=== PATIENT | female | born 1945 | race Caucasian/White ===

== ENCOUNTER → 2016-05-12 | Outpatient (CLI) | payer MEDICARE, OTHER ==
[~2016-05-12] MED LIST: APIX5TAB PO; ASPI-99 PO; BETH25TA PO; CARA1TAB6 PO; CARD240C6 PO; CHOL1CAP6 PO; COZA100T PO; CYCL1TAB29 PO; DILT240C PO; DILT60TA PO; ERYT250C PO; ERYT250C12 PO; ESTR.3 PO; HYDR25TA5 PO; LEVO75TA3 PO; LEVO75TA43 PO; LOSA100T PO; METH4TAB6 PO; OCUVTAB4 PO; OXYC-392 PO; PANT40TA3 PO; TYLE500T PO; ULTR50TA5 PO; ZOFR4TAB3 SL
== END ==
LOC: PLAB 12:39
PROVIDERS: ATTEND Family Medicine
DX: G43.419 Hemiplegic migraine, intractable, without status migrainosus (principal)
CPT/HCPCS: 36415; 85652

== ENCOUNTER 2016-06-20 11:50 | Day surgery (SDC) | payer MEDICARE, OTHER ==
[~2016-06-20 11:50] MED LIST changes: -ASPI-99 PO; -CARA1TAB6 PO; -COZA100T PO; -CYCL1TAB29 PO; -DILT240C PO; -DILT60TA PO; -ERYT250C PO; -ERYT250C12 PO; -ESTR.3 PO; -HYDR25TA5 PO; -LEVO75TA43 PO; -OXYC-392 PO; -PANT40TA3 PO; -ULTR50TA5 PO
[2016-06-20] MEDS ORDERED: NO Heparin, Lovenox, Coumadin at least 12 hours prior to procedure. XX PRN (12:45)
[2016-06-20] MEDS ORDERED: CHLORHEXIDINE GLUCONATE 2 % 1 PACK (2 CLOTHS) TOP SCH (12:45)
[2016-06-20] MEDS ORDERED: MUPIROCIN 2% OINT 1 APPLIC/GM SYR NASAL SCH (12:45)
[2016-06-20] MEDS ORDERED: ceFAZolin 2 GM PREMIX 50 ML IV SCH (12:45)
[2016-06-20] MEDS ORDERED: POVIDONE IODINE 5% (ANTISEPSIS KIT) 4 APPLICATIONS EACH NARE SCH (12:45)
[2016-06-20] MEDS ORDERED: NS 1000 ML IV SCH (13:00)
[2016-06-20] MEDS ORDERED: MIDAZOLAM HCL 5 MG/5 ML VIAL ONE (13:14)
--- NOTE | 2016-06-20 14:12 | MA ---
cc: DAREN EARLY MD DATE: 06/20/2016 DIAGNOSIS Atrial fibrillation management. PROCEDURES PERFORMED 1. Loop recorder insertion. 2. 15 minutes of moderate sedation. DESCRIPTION OF PROCEDURE The patient was brought to the DOC unit in a postabsorptive state after informed consent was obtained. 2 mg of Versed and 15 mcg of fentanyl were given for IV sedation. Next, a [employer] LIN[employer] loop recorder was inserted subcutaneously to the left chest. The patient tolerated the procedure well without any apparent complications. Tachybrady pause and atrial fibrillation detection was enabled. The initial R-wave was 0.19 mV. The serial number is [id number]. Daren Early MD ANNIKA/BT /1:31 PM /1:56 PM
[2016-10-07] MEDS ORDERED: APIX5TAB PO (15:38)
[2016-10-07] MEDS ORDERED: ERYT250C PO (15:38)
[2016-10-07] MEDS ORDERED: COZA100T PO (15:38)
[2016-10-07] MEDS ORDERED: LEVO75TA3 PO (15:38)
[2016-10-07] MEDS ORDERED: ESTR.3 PO (15:38)
== END 2016-06-20 13:50 | disposition home or self-care (01) ==
LOC: HDOC 11:50 → HDIC 11:51 → HDOC 13:50
PROVIDERS: ATTEND Nuclear Medicine Nuclear Cardiology
DX: I48.2 Chronic atrial fibrillation (principal)
CPT/HCPCS: 33282; C1764; J2250; J3010

== ENCOUNTER → 2016-07-04 | Outpatient (CLI) | payer MEDICARE, OTHER ==
[~2016-07-04] MED LIST changes: +ASPI-99 PO; +CARA1TAB6 PO; +COZA100T PO; +CYCL1TAB29 PO; +DILT240C PO; +DILT60TA PO; +ERYT250C PO; +ERYT250C12 PO; +ESTR.3 PO; +HYDR25TA5 PO; +LEVO75TA43 PO; +OXYC-392 PO; +PANT40TA3 PO; +ULTR50TA5 PO
[2016-07-04 12:47] LABS: AUTOMATED NEUTROPHIL # 4.1 TH/MM3 (1.8-7.7); BASOPHIL % 0.6 % (0.0-2.0); EOSINOPHIL # 0.2 TH/MM3 (0-0.4); EOSINOPHIL % 2.9 % (0.0-4.0); HEMATOCRIT 41.2 % (35.0-46.0); HEMO FLAGS DIFF FINAL; LYMPH % 33.7 % (9.0-44.0); LYMPHOCYTE # 2.6 TH/MM3 (1.0-4.8); MEAN CELL VOLUME 94.4 FL (80.0-100.0); MEAN CORPUSCULAR HEMOGLOBIN 31.8 PG (27.0-34.0); MEAN CORPUSCULAR HGB CONC 33.7 % (32.0-36.0); MONO % 8.4 % (0.0-8.0); NEUT % 54.4 % (16.0-70.0); PLATELET COUNT 256 TH/MM3 (150-450); RED BLOOD COUNT 4.36 MIL/MM3 (4.00-5.30); RED CELL DISTRIBUTION WIDTH 13.6 % (11.6-17.2); WHITE BLOOD COUNT 7.6 TH/MM3 (4.0-11.0)
[2016-07-04 13:20] LABS: ANION GAP 6 MEQ/L (5-15); AST (GOT) 32 U/L (15-37); BICARBONATE 30.2 MEQ/L (21.0-32.0); BLOOD UREA NITROGEN 17 MG/DL (7-18); CHLORIDE 104 MEQ/L (98-107); GLOMERULAR FILTRATION RATE 56 ML/MIN (>89); GLUCOSE,FASTING 91 MG/DL (74-99); POTASSIUM 4.2 MEQ/L (3.5-5.1); SODIUM (NA) 140 MEQ/L (136-145)
[2016-07-04 13:37] LABS: ALKALINE PHOSPHATASE 58 U/L (45-117); ALT (GPT) 43 U/L (10-53); HDL CHOLESTEROL 76.5 MG/DL (40.0-60.0); LDL CHOLESTEROL 117 MG/DL (0-99); TOTAL BILIRUBIN ADULT 0.4 MG/DL (0.2-1.0)
== END ==
LOC: PLAB 09:21
PROVIDERS: ATTEND Family Medicine
DX: I10 Essential (primary) hypertension (principal); E78.5 Hyperlipidemia, unspecified; R10.9 Unspecified abdominal pain; N95.2 Postmenopausal atrophic vaginitis; E03.9 Hypothyroidism, unspecified
CPT/HCPCS: 36415; 80053; 80061; 84443; 85025

== ENCOUNTER 2016-07-06 19:21 | Emergency (ER) | payer MEDICARE, OTHER ==
[~2016-07-06] VITALS: Ht 162.6 cm; Wt 82.0 kg
[~2016-07-06 19:21] MED LIST changes: -ASPI-99 PO; -CARA1TAB6 PO; -COZA100T PO; -CYCL1TAB29 PO; -DILT240C PO; -DILT60TA PO; -ERYT250C PO; -ERYT250C12 PO; -ESTR.3 PO; -HYDR25TA5 PO; -LEVO75TA43 PO; -OXYC-392 PO; -PANT40TA3 PO; -ULTR50TA5 PO
[2016-07-06 19:32] VITALS: BP 148/80; PULSE 91; RESP 18; TEMP 98.2; O2SAT 94
[2016-07-06 19:59] VITALS: BP 148/80; PULSE 91; RESP 18; TEMP 98.2; O2SAT 94
[2016-07-06] MEDS ORDERED: SODIUM CHLORIDE 0.9% FLUSH 5 ML FLUSH IVF PRN (20:00)
[2016-07-06] MEDS ORDERED: ONDANSETRON HCL 4 MG/2 ML VIAL IVP ONE (20:00)
[2016-07-06] MEDS ORDERED: MORPHINE SULFATE 4 MG/ML INJ IV PUSH ONE ×2 (20:00→21:30)
--- NOTE | 2016-07-06 20:27 | PD ---
HPI . Abdominal and back pain Chief Complaint: Abdominal Pain Time Seen by Provider: 19:40 Travel History International Travel<30 days: No Contact w/Intl Traveler<30days: No Traveled to known affect area: No History of Present Illness HPI Patient presents complaining with abdominal and back pain. She states that it started as right flank pain yesterday. It has now moved to the epigastrium and is radiating through to her back. The pain is severe. It is associated with nausea. She states that it feels like a previous episode of pancreatitis. She admits to nausea but denies any vomiting or diarrhea. She has not had any fever. She denies any urinary tract symptoms. She reports a previous right nephrectomy because of hydronephrosis. She has also had a previous cholecystectomy. [id number]: Epigastrium and mid back SEVERITY: Severe DURATION: Less than 24 hours TIMING: Started in the right flank and moved to the epigastrium and back CONTEXT: History of pancreatitis MODIFYING FACTORS: It is exacerbated by movement ASSOCIATED SYMPTOMS: Nausea PFSH Past Medical History Hx Anticoagulant Therapy: Yes (ELEQUIS) Arthritis: No Asthma: No Atrial Fibrillation: Yes Autoimmune Disease: No Heart Rhythm Problems: Yes Cancer: No Cardiovascular Problems: Yes High Cholesterol: Yes Chemotherapy: No Chest Pain: No Congestive Heart Failure: No COPD: No Cerebrovascular Accident: No Diabetes: No Diminished Hearing: No Endocrine: Yes Gastrointestinal Disorders: Yes (GASTROPARESIS) GERD: Yes Genitourinary: Yes (HYDRONEPHROSIS) Headaches: Yes Hiatal Hernia: No Hypertension: Yes Immune Disorder: No Implanted Vascular Access Dvce: No Kidney Stones: No Musculoskeletal: Yes Neurologic: Yes Psychiatric: No Reproductive: No Respiratory: No Immunizations Current: Yes Migraines: Yes Radiation Therapy: No Renal Failure: No Seizures: No Sickle Cell Disease: No Sleep Apnea: No Thyroid Disease: Yes Ulcer: No Tetanus Vaccination: Unknown Influenza Vaccination: Yes ?: Not Menopausal: Yes Past Surgical History Abdominal Surgery: Yes (GALL BLADDER) AICD: No Arteriovenous Shunt: No Cardiac Surgery: No Cholecystectomy: Yes Ear Surgery: No Endocrine Surgery: No Eye Surgery: No Genitourinary Surgery: Yes (RIGHT NEPHRECTOMY) Gynecologic Surgery: Yes (RADICAL HYSTERECTOMY) Hysterectomy: Yes Insulin Pump: No Joint Replacement: No Neurologic Surgery: No Oral Surgery: Yes Pacemaker: No Thoracic Surgery: No Other Surgery: Yes Social History Alcohol Use: Yes (KALI PHILLIPS) Tobacco Use: No Substance Use: No Allergies-Medications (Allergen,Severity, Reaction): Coded Allergies: Dilaudid (Verified Adverse Reaction, Mild, Nausea/Vomiting, 07/06/16) Reported Meds & Prescriptions Reported Meds & Active Scripts Active Reported Premarin (Estrogens Conjugated) 0.3 Mg Tab 0.3 Mg PO DAILY Pantoprazole (Pantoprazole Sodium) 40 Mg Tab 40 Mg PO DAILY Hydrochlorothiazide 25 Mg Tab 25 Mg PO DAILY Diltiazem (Diltiazem HCl) 60 Mg Tab 60 Mg PO QID Diltiazem HCl ER (Diltiazem HCl Coated Beads) 240 Mg Cap Erythromycin (Erythromycin Base) 250 Mg Cap 125 Mg PO QID Losartan (Losartan Potassium) 100 Mg Tab 100 Mg PO DAILY Levoxyl (Levothyroxine Sodium) 75 Mcg Tab 75 Mcg PO DAILY Review of Systems Except as stated in HPI: all other systems reviewed are Neg General / Constitutional: No: Fever, Chills Cardiovascular: No: Chest Pain or Discomfort Respiratory: No: Shortness of Breath Gastrointestinal: Positive: Nausea, Abdominal Pain, No: Vomiting, Diarrhea, Loss of Appetite Genitourinary: No: Urgency, Frequency, Dysuria Musculoskeletal: Positive: Pain (mid back pain) Physical Exam Narrative GENERAL: Patient presents ambulatory and is in no acute distress. She does seem to have pain with movement. SKIN: Warm and dry. HEAD: Atraumatic. Normocephalic. EYES: Pupils equal and round. ENT: No nasal bleeding or discharge. Mucous membranes pink and moist. NECK: Trachea midline. Neck is supple. CARDIOVASCULAR: Regular rate and rhythm. Heart sounds are normal. RESPIRATORY: No accessory muscle use. Lungs are clear with full air movement throughout. GASTROINTESTINAL: Abdomen soft, non-tender, nondistended. She has a totally benign abdominal exam. MUSCULOSKELETAL: No obvious deformities. No edema. NEUROLOGICAL: Awake and alert. No obvious cranial nerve deficits. Motor grossly within normal limits. Normal speech. PSYCHIATRIC: Appropriate mood and affect; insight and judgment normal. Data Data Last Documented VS Vital Signs Date Time Temp Pulse Resp B/P Pulse Ox O2 Delivery O2 Flow Rate FiO2 07/06/16 21:42 18 07/06/16 21:26 75 118/53 94 Room Air 07/06/16 19:59 98.2 Orders Complete Blood Count With Diff (07/06/16 19:47) Comprehensive Metabolic Panel (07/06/16 19:47) Lactic Acid (07/06/16 19:47) Urinalysis - C+S If Indicated (07/06/16 19:47) Ct Abd/Pel W Iv Contrast(Rout) (07/06/16 19:47) Iv Access Insert/Monitor (07/06/16 19:47) Morphine Inj (Morphine Inj) (07/06/16 20:00) Ondansetron Inj (Zofran Inj) (07/06/16 20:00) Sodium Chloride 0.9% Flush (Ns Flush) (07/06/16 20:00) Electrocardiogram (07/06/16 19:47) Morphine Inj (Morphine Inj) (07/06/16 21:30) Lipase (07/06/16 20:20) Iodixanol 320 Inj (Rad Ct) (Visipaque 32 (07/06/16 22:05) Labs Laboratory Tests Test 07/06/16 20:20 White Blood Count 8.2 TH/MM3 Red Blood Count 4.54 MIL/MM3 Hemoglobin 14.6 GM/DL Hematocrit 42.1 % Mean Corpuscular Volume 92.8 FL Mean Corpuscular Hemoglobin 32.2 PG Mean Corpuscular Hemoglobin 34.7 % Concent Red Cell Distribution Width 12.6 % Platelet Count 275 TH/MM3 Mean Platelet Volume 8.1 FL Neutrophils (%) (Auto) 60.4 % Lymphocytes (%) (Auto) 29.2 % Monocytes (%) (Auto) 8.0 % Eosinophils (%) (Auto) 1.1 % Basophils (%) (Auto) 1.3 % Neutrophils # (Auto) 4.9 TH/MM3 Lymphocytes # (Auto) 2.4 TH/MM3 Monocytes # (Auto) 0.7 TH/MM3 Eosinophils # (Auto) 0.1 TH/MM3 Basophils # (Auto) 0.1 TH/MM3 CBC Comment DIFF FINAL Differential Comment Urine Collection Type VOIDED Urine Color YELLOW Urine Turbidity CLEAR Urine pH 6.5 Urine Specific Ber[place] 1.022 Urine Protein TRACE mg/dL Urine Glucose (UA) NEG mg/dL Urine Ketones TRACE mg/dL Urine Occult Blood NEG Urine Nitrite NEG Urine Bilirubin NEG Urine Leukocyte Esterase NEG Urine WBC 0-2 /hpf Urine Squamous Epithelial >8 /hpf Cells Microscopic Urinalysis Comment CULT NOT INDICATED Sodium Level 140 MEQ/L Potassium Level 3.8 MEQ/L Chloride Level 101 MEQ/L Carbon Dioxide Level 29.3 MEQ/L Anion Gap 10 MEQ/L Blood Urea Nitrogen 17 MG/DL Creatinine 1.20 MG/DL Estimat Glomerular Filtration 44 ML/MIN Rate Random Glucose 114 MG/DL Lactic Acid Level 1.5 mmol/L Calcium Level 9.7 MG/DL Total Bilirubin 0.4 MG/DL Aspartate Amino Transf 25 U/L (AST/SGOT) Alanine Aminotransferase 34 U/L (ALT/SGPT) Alkaline Phosphatase 69 U/L Total Protein 8.2 GM/DL Albumin 3.7 GM/DL Lipase 183 U/L [facility] Medical Decision Making Medical Screen Exam Complete: Yes Emergency Medical Condition: Yes Differential Diagnosis Differential diagnosis of abdominal pain includes but is not limited to gastritis, pancreatitis, hepatitis, gastroenteritis, gallbladder disease, constipation, urinary retention, UTI, peptic ulcer disease, diverticulitis or appendicitis Narrative Course Patient presents for evaluation of epigastric pain radiating through to the back. She has already had a previous cholecystectomy and right nephrectomy. Therefore, cholecystitis and right renal colic can be ruled out. CBC & BMP Diagram 07/06/16 20:20 LFTs, lipase and LA normal. U/A neg for infection. Last Impressions Abdomen/Pelvis CT 07/06/161946 Signed Impressions: Service Date/Time: Wednesday, July 06, 2016 21:44 - CONCLUSION: 1. Mild to moderate hepatic steatosis. 2. Status post cholecystectomy. 3. Right nephrectomy. No residual soft tissue density. 4. Scattered diverticulosis without diverticulitis. Dioni Savage MD No etiology for her epigastric and back pain has been found. She acts like musculoskeletal pain. The patient has been on erythromycin for about a year for her gastroparesis. She is already on Protonix. I will add Carafate. Diagnosis Primary Impression: Abdominal pain, acute, epigastric Additional Impression: Back pain Qualified Code: M54.6 - Acute midline thoracic back pain Patient Instructions: Back Pain (ED), Epigastric Pain (ED), General Instructions Med/Other Pt SpecificInfo: Prescription(s) given Scripts Cyclobenzaprine (Flexeril)10 Mg Tab10 Mg PO TID #30 TAB Ref 0 Prov:Laura Alaniz MD 07/06/16 Tramadol (Ultram)50 Mg Tab50 Mg PO Q4H PRN (PAIN) #12 TAB Ref 0 Prov:Laura Alaniz MD 07/06/16 Sucralfate (Carafate)1 Gm Tab1 Gm PO QID #120 TAB Ref 0 On empty stomach Prov:Laura Alaniz MD 07/06/16 Disposition: 01 DISCHARGE HOME Condition: Stable Laura Alaniz MD Jul 06, 2016 20:27
[2016-07-06] MEDS ORDERED: ESTR.3 PO (20:42)
[2016-07-06] MEDS ORDERED: DILT60TA PO (20:42)
[2016-07-06] MEDS ORDERED: ERYT250C12 PO (20:42)
[2016-07-06] MEDS ORDERED: HYDR25TA5 PO (20:42)
[2016-07-06] MEDS ORDERED: LEVO75TA43 PO (20:42)
[2016-07-06] MEDS ORDERED: LOSA100T PO (20:42)
[2016-07-06] MEDS ORDERED: PANT40TA3 PO (20:42)
[2016-07-06] MEDS ORDERED: DILT240C PO (20:42)
[2016-07-06 20:43] LABS: AUTOMATED NEUTROPHIL # 4.9 TH/MM3 (1.8-7.7); BASOPHIL # 0.1 TH/MM3 (0-0.2); BASOPHIL % 1.3 % (0.0-2.0); EOSINOPHIL # 0.1 TH/MM3 (0-0.4); EOSINOPHIL % 1.1 % (0.0-4.0); HEMATOCRIT 42.1 % (35.0-46.0); HEMO FLAGS DIFF FINAL; LYMPH % 29.2 % (9.0-44.0); LYMPHOCYTE # 2.4 TH/MM3 (1.0-4.8); MEAN CELL VOLUME 92.8 FL (80.0-100.0); MEAN CORPUSCULAR HEMOGLOBIN 32.2 PG (27.0-34.0); MEAN CORPUSCULAR HGB CONC 34.7 % (32.0-36.0); NEUT % 60.4 % (16.0-70.0); PLATELET COUNT 275 TH/MM3 (150-450); RED BLOOD COUNT 4.54 MIL/MM3 (4.00-5.30); RED CELL DISTRIBUTION WIDTH 12.6 % (11.6-17.2); WHITE BLOOD COUNT 8.2 TH/MM3 (4.0-11.0)
[2016-07-06 20:44] LABS: BLOOD, URINE NEG (NEG); GLUCOSE,URINE NEG (NEG); KETONE, URINE TRACE mg/dL (NEG); NITRITE,URINE NEG (NEG); PH, URINE 6.5 (5.0-8.5)
[2016-07-06 20:51] LABS: CHLORIDE 101 MEQ/L (98-107); POTASSIUM 3.8 MEQ/L (3.5-5.1); SODIUM (NA) 140 MEQ/L (136-145)
[2016-07-06 20:53] LABS: METHOD OF COLLECTION VOIDED; URINE COLOR YELLOW (YELLW/STRAW)
[2016-07-06 20:55] LABS: ANION GAP 10 MEQ/L (5-15); BICARBONATE 29.3 MEQ/L (21.0-32.0); BLOOD UREA NITROGEN 17 MG/DL (7-18); COMMENT (UR) CULT NOT INDICATED; CULTURE IF INDICATED CULT NOT INDICATED; SQUAMOUS EPITHELIAL CELL URINE >8 /hpf (0-5); WBC, URINE 0-2 /hpf (0-5)
[2016-07-06 20:58] LABS: ALT (GPT) 34 U/L (10-53); AST (GOT) 25 U/L (15-37); GLOMERULAR FILTRATION RATE 44 ML/MIN (>89)
[2016-07-06 20:59] LABS: TOTAL BILIRUBIN ADULT 0.4 MG/DL (0.2-1.0)
[2016-07-06 21:01] LABS: ALKALINE PHOSPHATASE 69 U/L (45-117)
[2016-07-06 21:26] VITALS: BP 118/53; PULSE 75; RESP 18; O2SAT 94
[2016-07-06] MEDS ORDERED: IODIXANOL 320 MG/ML 10 ML VIAL (for Rad CT) IV ONE (22:05)
--- NOTE | 2016-07-06 22:09 | RADHPO ---
EXAM DATE/TIME: 07/06/2016 21:44 [facility] COMPARISON: No previous studies available for comparison. INDICATIONS : Diffuse abdominal pain with nausea. IV CONTRAST: 46 cc Visipaque (iodixanol) IV ORAL CONTRAST: No oral contrast ingested. RADIATION DOSE: 16.2 CTDIvol (mGy) MEDICAL HISTORY : Gastroparesis. Gastroesophageal reflux disease. SURGICAL HISTORY : Cholecystectomy. Nephrectomy, right.Hysterectomy. ENCOUNTER: Initial ACUITY: 2 days PAIN SCALE: 8/10 LOCATION: Abdomen. TECHNIQUE: Volumetric scanning of the abdomen and pelvis was performed. Using automated exposure control and ad justment of the mA and/or kV according to patient size, radiation dose was kept as low as reasonably achievable to obtain optimal diagnostic quality images. FINDINGS: LOWER LUNGS: Minimal bibasilar densities. LIVER: Decreased attenuation without lesion. There is no dilation of the biliary tree. Cholecystectomy clip s. SPLEEN: Normal size without lesion. PANCREAS: Within normal limits. KIDNEYS: Right kidney surgically absent. There is no mass, stone or hydronephrosis the left kidney. ADRENAL GLANDS: Within normal limits. VASCULAR: There is no aortic aneurysm. BOWEL/MESENTERY: Scattered diverticulosis. Appendix is normal. There is no free intraperitoneal air or fluid. ABDOMINAL WALL: Within normal limits. RETROPERITONEUM: There is no lymphadenopathy. BLADDER: No wall thickening or mass. REPRODUCTIVE: Within normal limits. INGUINAL: There is no lymphadenopathy or hernia. MUSCULOSKELETAL: Within normal limits for patient age. CONCLUSION: 1. Mild to moderate hepatic steatosis. 2. Status post cholecystectomy. 3. Right nephrectomy. No residual soft tissue density. 4. Scattered diverticulosis without diverticulitis. Dioni Savage MD on July 06, 2016 at 22:05 Board Certified Radiologist. This report was verified electronically.
[2016-07-06] MEDS ORDERED: ULTR50TA5 PO (22:21)
[2016-07-06] MEDS ORDERED: CYCL1TAB29 PO (22:21)
[2016-07-06] MEDS ORDERED: CARA1TAB6 PO (22:21)
[2016-07-06 22:23] VITALS: BP 134/60; PULSE 77; RESP 18; O2SAT 95
--- NOTE | 2016-07-07 14:42 | EKG ---
Date Performed: 07/06/2016 Time Performed: 19:50:28 PTAGE: 71 years EKG: Sinus rhythm . Leftward axis Poor R wave progression - probable normal variant Lateral ST changes are nonspecific Borderline ECG PREVIOUS TRACING : 03/21/2015 01.50 Compared to prior tracing no significant change DOCTOR: Ke Ac Interpretating Date/Time 07/07/2016 14:41:51
[2016-10-07] MEDS ORDERED: LEVO75TA3 PO (15:38)
[2016-10-07] MEDS ORDERED: COZA100T PO (15:38)
[2016-10-07] MEDS ORDERED: APIX5TAB PO (15:38)
[2016-10-07] MEDS ORDERED: ERYT250C PO (15:38)
[2016-10-07] MEDS ORDERED: ESTR.3 PO (15:38)
== END 2016-07-06 22:53 | disposition home or self-care (01) ==
LOC: PHED 19:21
DX: R10.13 Epigastric pain (principal); M54.6 Pain in thoracic spine; R11.0 Nausea; R94.31 Abnormal electrocardiogram [ECG] [EKG]; I10 Essential (primary) hypertension; E07.9 Disorder of thyroid, unspecified; E78.00 Pure hypercholesterolemia, unspecified; Z79.01 Long term (current) use of anticoagulants; Z86.79 Personal history of other diseases of the circulatory system; Z87.19 Personal history of other diseases of the digestive system; Z87.448 Personal history of other diseases of urinary system; Z87.39 Personal history of other diseases of the musculoskeletal system and connective tissue; Z86.69 Personal history of other diseases of the nervous system and sense organs
CPT/HCPCS: 74177; 80053; 81001; 83605; 83690; 85025; 93005; 96374; 96375; 96376; 99284; J2270; J2405; Q9967

== ENCOUNTER → 2016-07-21 | Outpatient (CLI) | payer MEDICARE, OTHER ==
[~2016-07-21] MED LIST changes: +ASPI-99 PO; -BETH25TA PO; +CARA1TAB6 PO; -CARD240C6 PO; -CHOL1CAP6 PO; +COZA100T PO; +CYCL1TAB29 PO; +DILT240C PO; +DILT60TA PO; +ERYT250C PO; +ERYT250C12 PO; +ESTR.3 PO; +HYDR25TA5 PO; +LEVO75TA43 PO; -METH4TAB6 PO; -OCUVTAB4 PO; +OXYC-392 PO; +PANT40TA3 PO; -TYLE500T PO; +ULTR50TA5 PO; -ZOFR4TAB3 SL
[2016-07-21 13:49] LABS: POTASSIUM 3.7 MEQ/L (3.5-5.1)
== END ==
LOC: PLAB 11:34
PROVIDERS: ATTEND Family Medicine
DX: N28.9 Disorder of kidney and ureter, unspecified (principal)
CPT/HCPCS: 36415; 80048

== ENCOUNTER → 2016-09-10 | Outpatient (CLI) | payer MEDICARE, OTHER ==
[2016-09-10 16:01] LABS: RHEUMATOID FACTOR TRIGGER LESS THAN 10.0 IU/ML (0.0-14.9)
[2016-09-10 16:04] LABS: ANION GAP 7 MEQ/L (5-15); AST (GOT) 27 U/L (15-37); BICARBONATE 26.7 MEQ/L (21.0-32.0); BLOOD UREA NITROGEN 12 MG/DL (7-18); CHLORIDE 106 MEQ/L (98-107); GLOMERULAR FILTRATION RATE 62 ML/MIN (>89); SODIUM (NA) 140 MEQ/L (136-145)
[2016-09-10 16:07] LABS: ALKALINE PHOSPHATASE 59 U/L (45-117); ALT (GPT) 30 U/L (10-53); CREATINE KINASE 77 U/L (26-192); TOTAL BILIRUBIN ADULT 0.3 MG/DL (0.2-1.0)
[2016-09-10 16:24] LABS: WESTERGREN SEDIMENTATION RATE 32 mm/hr (0-30)
[2016-09-10 16:28] LABS: AUTOMATED NEUTROPHIL # 2.9 TH/MM3 (1.8-7.7); BASOPHIL % 0.6 % (0.0-2.0); EOSINOPHIL # 0.2 TH/MM3 (0-0.4); EOSINOPHIL % 2.5 % (0.0-4.0); HEMO FLAGS DIFF FINAL; LYMPHOCYTE # 2.8 TH/MM3 (1.0-4.8); MEAN CORPUSCULAR HEMOGLOBIN 31.8 PG (27.0-34.0); MEAN CORPUSCULAR HGB CONC 34.2 % (32.0-36.0); MONO % 9.7 % (0.0-8.0); NEUT % 44.2 % (16.0-70.0); PLATELET COUNT 240 TH/MM3 (150-450); RED BLOOD COUNT 4.41 MIL/MM3 (4.00-5.30); RED CELL DISTRIBUTION WIDTH 13.4 % (11.6-17.2); WHITE BLOOD COUNT 6.6 TH/MM3 (4.0-11.0)
== END ==
LOC: PLAB 12:28
PROVIDERS: ATTEND Family Medicine
DX: M79.1 Myalgia (principal); R60.0 Localized edema; M25.50 Pain in unspecified joint
CPT/HCPCS: 36415; 80053; 82550; 85025; 85652; 86038; 86141; 86430

== ENCOUNTER 2016-10-03 15:26 | Inpatient (IN) | payer MEDICARE, OTHER ==
[~2016-10-03] VITALS: Ht 162.6 cm; Wt 85.4 kg
[~2016-10-03 15:26] MED LIST changes: -APIX5TAB PO; -ASPI-99 PO; -COZA100T PO; -ERYT250C PO; -LEVO75TA3 PO; -OXYC-392 PO
[2016-10-07] MEDS ORDERED: COZA100T PO ×2 (15:38)
[2016-10-07] MEDS ORDERED: ESTR.3 PO ×2 (15:38)
[2016-10-07] MEDS ORDERED: ERYT250C PO ×2 (15:38)
[2016-10-07] MEDS ORDERED: APIX5TAB PO ×2 (15:38)
[2016-10-07] MEDS ORDERED: LEVO75TA3 PO ×2 (15:38)
[2016-10-09] VITALS (8 sets, daily range): BP systolic 120–172; BP diastolic 59–71; PULSE 57–78; RESP 16–19; TEMP 97.5–98; O2SAT 95–98
[2016-10-09] MEDS ORDERED: SODIUM CHLORID 0.9% 500 ML IV PRN (06:30)
[2016-10-09] MEDS ORDERED: POVIDONE IODINE 5% (ANTISEPSIS KIT) 4 APPLICATIONS EACH NARE PRN (06:30)
[2016-10-09] MEDS ORDERED: LACTATED RINGER'S 1000 ML IV PRN (06:30)
[2016-10-09] MEDS ORDERED: CHLORHEXIDINE GLUCONATE 2 % 1 PACK (2 CLOTHS) TOPICAL PRN (06:30)
[2016-10-09] MEDS ORDERED: INSULIN HUMAN REGULAR 1,000 UNITS/10 ML VIAL SQ PRN (06:30)
[2016-10-09] MEDS ORDERED: METOPROLOL TARTRATE 25 MG TAB PO PRN (06:30)
--- NOTE | 2016-10-09 06:58 | HHI.HP ---
History of Present Illness Chief Complaint: asymptomatic R carotid stenosis History of Present Illness 71 yo [place] female with asymptomatic R carotid stenosis; no history of stroke, TIA, or amaurosis. Has been feeling well since seen in clinic - no change in health Past/Family/Social History Past Medical History GERD HTN gastroparesis Past Surgical History R nephrectomy [facility] edwin cardiac ablation (a fib) Social History nonsmoker Family History NC Home Medications Reported Medications Losartan (Cozaar)100 Mg Qgx405 Mg PO DAILY #30 TAB Ref 0 10/07/16 Levothyroxine 75 Mcg Tab75 Mcg PO DAILY #30 TAB Ref 0 10/07/16 Estrogens, Conjugated (Premarin)0.3 Mg Tab0.3 Mg PO DAILY #30 TAB Ref 0 10/07/16 Erythromycin Base (Erythromycin)250 Mg Capsule.dr125 Mg PO QID 10/07/16 Apixaban (Eliquis)5 Mg Tab5 Mg PO BID #60 TAB Ref 0 10/07/16 Diltiazem HCl Coated Beads (Diltiazem HCl ER)240 Mg Cap1 Cap PO DAILY 07/06/16 Discontinued Reported Medications Estrogens, Conjugated (Premarin)0.3 Mg Tab0.3 Mg PO DAILY #30 TAB Ref 0 07/06/16 Pantoprazole 40 Mg Tab40 Mg PO DAILY #30 TAB Ref 0 07/06/16 Hydrochlorothiazide 25 Mg Tab25 Mg PO DAILY #30 TAB Ref 0 07/06/16 Diltiazem 60 Mg Tab60 Mg PO QID #120 TAB Ref 0 07/06/16 Erythromycin Base (Erythromycin)250 Mg [id number] Mg PO QID 07/06/16 Losartan 100 Mg Ydc191 Mg PO DAILY #30 TAB Ref 0 07/06/16 Levothyroxine (Levoxyl)75 Mcg Tab75 Mcg PO DAILY #30 TAB Ref 0 07/06/16 Discontinued Scripts Cyclobenzaprine (Flexeril)10 Mg Tab10 Mg PO TID #30 TAB Ref 0 Prov:Laura Alaniz MD 07/06/16 Tramadol (Ultram)50 Mg Tab50 Mg PO Q4H PRN (PAIN) #12 TAB Ref 0 Prov:Laura Alaniz MD 07/06/16 Sucralfate (Carafate)1 Gm Tab1 Gm PO QID #120 TAB Ref 0 On empty stomach Prov:Laura Alaniz MD 07/06/16 Coded Allergies: Dilaudid (Verified Adverse Reaction, Mild, Nausea/Vomiting, 10/09/16) Review of Systems Constitutional: DENIES: Fever, Chills Eyes: DENIES: Vision loss Cardiovascular: DENIES: Chest pain, Syncope, Dyspnea on Exertion Gastrointestinal: COMPLAINS OF: Nausea Psychiatric: COMPLAINS OF: Anxiety Physical Exam Neuro: awake, alert, neuro intact HEENT: NC/AT; anicteric sclera Neck: no JVD; R neck without rashes or skin changes Heart: reg rate, no M Lungs: clear B Abdomen: NT Vascular: palpable UE pulses Extremities: MCBRIDE, no CCE Hct 41 plt 249 INR 0.9 cr 0.9 CTA reviewed - high grade R ICA stenosis Assessment and Plan Plan R CEA today. All the risks and benefits were discussed with the patient and she agrees. To OR. Patient's operative site marked. Discharge Planning CVICU post-op Likely home tomorrow (POD#1) family phone: [phone] Dylan Quezada MD Oct 09, 2016 06:58
[2016-10-09] MEDS ORDERED: HEPARIN SODIUM - IV 10,000 UNITS/10 ML VIAL ONE (07:18)
[2016-10-09] MEDS ORDERED: THROMBIN (TOPICAL) 20,000 UNIT SPRAY KIT ONE (07:18)
[2016-10-09] MEDS ORDERED: PROTAMINE SULFATE 50 MG/5 ML VIAL ONE (07:18)
[2016-10-09] MEDS ORDERED: LACTATED RINGER'S 1000 ML INJ 1,000 ML IV SCH (07:25)
[2016-10-09] MEDS ORDERED: MORPHINE SULFATE 4 MG/ML INJ IV PRN (07:30)
[2016-10-09] MEDS ORDERED: FAMOTIDINE 20 MG/2 ML VIAL ONE (07:41)
[2016-10-09] MEDS ORDERED: ONDANSETRON HCL 4 MG/2 ML VIAL ONE (07:42)
[2016-10-09] MEDS ORDERED: MIDAZOLAM HCL 2 MG/2 ML VIAL ONE (07:42)
[2016-10-09] MEDS ORDERED: METOCLOPRAMIDE HCL 10 MG/2 ML VIAL ONE (07:42)
[2016-10-09] MEDS ORDERED: PROMETHAZINE INJ 25 MG/ML VIAL ONE (07:45)
[2016-10-09] MEDS ORDERED: ceFAZolin 2 GM PREMIX 50 ML ONE (08:09)
[2016-10-09] MEDS: LEVOTHYROXINE SODIUM 75 MCG TAB PO SCH (08:30)
[2016-10-09] MEDS: LOSARTAN 50 MG TAB PO SCH (09:00)
[2016-10-09] MEDS: ASPIRIN EC 81 MG TABEC PO SCH (09:00)
[2016-10-09] MEDS: PANTOPRAZOLE SOD 40 MG DELAYED RELEASE TAB PO SCH (09:00)
--- NOTE | 2016-10-09 09:53 | HHI.PR ---
cc: Marisol Piña MD Immediate Post Op Note Procedure Date: Oct 09, 2016 Pre Op Diagnosis: Asymptomatic high grade RIGHT carotid stenosis Post Op Diagnosis: Asymptomatic high grade RIGHT carotid stenosis Surgeon: Dylan Quezada Computer Education Professor(s): Ebenezer Salas Procedure: R CEA Findings: high grade plaque in proximal R ICA Additional Information: endarterectomy and patch without difficulty awoke neurologically intact Complications: none apparent Specimen(s) removed: plaque, not for pathology Estimated blood loss: 75 mL Anesthesia: General Drains: None Fluids: 1000mL IVF Patient to: Other (CVICU) Patient Condition: Good Implant/Devices: SEE IMPLANT LOG (if applicable) Date/Time of Procedure: SEE SURGICAL CARE RECORD Dylan Quezada MD Oct 09, 2016 09:53
[2016-10-09] MEDS ORDERED: DO NOT ADM ANY ANTICOAGULANT DRUGS PRN (10:00)
[2016-10-09] MEDS ORDERED: fentaNYL CITRATE 250 MCG/5 ML AMP ONE (10:19)
[2016-10-09] MEDS ORDERED: SUGAMMADEX SODIUM 200 MG/2 ML VIAL IV PUSH ONE ×2 (10:19)
--- NOTE | 2016-10-09 10:41 | PD.CONS ---
[facility] Service Critical Care Medicine Consult Requested By Dr. Quezada Reason for Consult Critical care management status post right carotid endarterectomy with patch secondary high-grade stenosis Primary Care Physician Marisol Piña MD History of Present Illness 71-year-old female. Date of admission . Date of consultation 10/09/2016. 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 She is status post right nephrectomy in 1965. She is also had a cholecystectomy, hysterectomy and bunionectomy. Today, she had an elective right CVA with patch secondary to proximal ZABRINA stenosis by Dr. Quezada. 1000 crystalloid. 75 cc EBL. 100 urine output. Received 40 mg labetalol and esmolol postoperative to maintain systolic blood pressure less than 140.. Review of Systems Constitutional: DENIES: Fever, Weight gain, Weight loss Endocrine: DENIES: Polydipsia, Polyuria Eyes: DENIES: Blurred vision, Eye pain Ears, nose, mouth, throat: DENIES: Tinnitus Respiratory: DENIES: Apneas, Shortness of breath Cardiovascular: DENIES: Chest pain Gastrointestinal: DENIES: Abdominal pain Genitourinary: DENIES: Urinary incontinence, Urgency Musculoskeletal: COMPLAINS OF: Joint pain, Back pain, Neck pain Integumentary: DENIES: Pruritus, Rash Hematologic/lymphatic: COMPLAINS OF: Bruising Immunologic/allergic: DENIES: Eczema Neurologic: DENIES: Abnormal gait Psychiatric: DENIES: Anxiety, Confusion Past Family Social History Allergies: Coded Allergies: Dilaudid (Verified Adverse Reaction, Mild, Nausea/Vomiting, 10/09/16) Past Medical History Anxiety Migraine headache Gastroesophageal reflux disease Hypothyroidism History of atrial fibrillation currently in sinus bradycardia Left hip osteoarthritis Status post menopause Past Surgical History Ablation 02/01 Cholecystectomy Hysterectomy Right nephrectomy 1965 Bunionectomy Reported Medications Levoxyl 75 mcg by mouth daily Losartan 100 mg by mouth daily Premarin 0.3 mg by mouth daily Erythromycin 125 mg by mouth 4 times a day Eliquis 5 mill grams by mouth twice a day Diltiazem 240 milligrams by mouth daily Active Ordered Medications Reviewed in EMR Family History One brother with prostate cancer. Father of heart disease in his 60s. Mother in her late 80s alive. Social History 30 pack years tobacco. Quit 1972. One martini a night. Denies IV drug use Physical Exam Vital Signs Vital Signs Date Time Temp Pulse Resp B/P Pulse Ox O2 Delivery O2 Flow Rate FiO2 10/09/16 06:54 98.0 78 16 172/71 98 Physical Exam GENERAL: 72 -year-old female, early resting in bed in no acute distress SKIN: Warm and dry. No rash. Some ecchymosis right clavicle regions HEAD: Atraumatic. Normocephalic. EYES: Pupils equal and round about 2 mm bilaterally reactive 3 mm. No scleral icterus. No injection or drainage. ENT: No nasal bleeding or discharge. Mucous membranes pink and moist. NECK: Trachea midline. No JVD. Right ICA scar is clean dry and intact without erythema CARDIOVASCULAR: Tachycardic, RR. S1, S2. No S4. Without murmur RESPIRATORY: No accessory muscle use. Clear to auscultation. Breath sounds equal bilaterally. GASTROINTESTINAL: Abdomen soft, non-tender, nondistended. Hepatic and splenic margins not palpable. MUSCULOSKELETAL: Extremities without significant peripheral edema. No obvious deformities. NEUROLOGICAL: Awake and alert. No obvious cranial nerve deficits. Motor grossly within normal limits. Five out of 5 muscle strength in the arms and legs. Normal speech. PSYCHIATRIC: Appropriate mood and affect; insight and judgment normal. Assessment and Plan Assessment and Plan Neuro/Psych: History of migraine headache Anxiety Acetaminophen for fever Oxycodone 5 mill grams every 4 hours when necessary pain/morphine 2 mg every hour when necessary breakthrough CV: Postop day #0 right CVA with patch secondary to significant proximal right ICA stenosis History of hypertension Dyslipidemia History of atrial fibrillation status post ablation 02/01 Currently on Cozaar 100 mg by mouth daily for hypertension. Resume Cleviprex drip goal keep systolic blood pressure less than 140 Diltiazem 240 mg by mouth daily at home for hypertension On LR at 42 cc an hour Continue aspirin 81 mg by mouth daily per vascular surgery Resp: Nasal cannula to maintain saturations greater than or equal to 92% Incentive spirometry while awake GI: Gastroesophageal reflux disease History of gastroparesis Advance diet per vascular surgery Protonix for GI prophylaxis On erythromycin 125 mg 4 times a day for chronic gastroparesis : Paul catheter to be removed Endo: Hypothyroidism Continue Levoxyl 75 mics grams by mouth daily Sliding-scale insulin per vascular surgery. Goal to maintain euglycemia Renal: History of right nephrectomy Monitor urine output Accurate I's and O's Heme: Chronic Eliquis use Monitor CBC daily. Follow trends. EBL 75 cc an hour On Eliquis at 5 mg twice a day at home ID: Monitor for infection FEN: Replace electrolytes as clinically indicated MSK: PT evaluate and treat Access - 1 left peripheral IV in left hand. - Left radial arterial line placed in OR 10/09 Prophylaxis - GI - Protonix - DVT - Lovenox subcutaneous Level II consult Code Status Full code Discussed Condition With IRISH MOSS BLEACHER. Patient. Care plan discussed all questions answered. Todd Shetty MD Oct 09, 2016 10:41
[2016-10-09] MEDS ORDERED: CLEVIDIPINE INJ 50 ML IV ONE (12:00)
[2016-10-09] MEDS ORDERED: PROPOFOL 200 MG/20 ML AMP IV ONE (12:39)
[2016-10-09] MEDS ORDERED: PHENYLEPH/NS 1000 MCG/10 ML SYR IV ONE (12:39)
[2016-10-09] MEDS ORDERED: LACTATED RINGER'S 1000 ML INJ 1,000 ML IV ONE (12:39)
[2016-10-09] MEDS ORDERED: ERYTHROMYCIN BASE PO SCH (13:00)
--- NOTE | 2016-10-09 15:51 | PD.VS.PN ---
Subjective POD #: 0 Procedure(s): R CEA Subjective/Hospital Course feels well in CICU, no neuro deficits c/o pain in neck but appropriate Objective Vitals/I&O Date Time Temp Pulse Resp B/P Pulse Ox O2 Delivery O2 Flow Rate FiO2 10/09/16 15:05 97.8 72 19 123/60 96 10/09/16 12:05 65 10/09/16 12:05 95 Nasal Cannula 4.00 10/09/16 11:11 97.5 57 17 143/59 98 10/09/16 06:54 98.0 78 16 172/71 98 Exam: neuro intact B UE and LE R neck incision c/d/i Assessment and Plan Plan d/c A-line and Paul Neuro checks q1h Goal SBP 140-160 Anticipate d/c tomorrow (Thu). Discharge Planning CVICU post-op Likely home tomorrow (POD#1) family phone: [phone] Dylan Quezada MD Oct 09, 2016 15:51
[2016-10-09] MEDS ORDERED: ACETAMINOPHEN 325 MG TAB ONE (16:04)
[2016-10-09] MEDS: ACETAMINOPHEN 325 MG TAB PO PRN (22:22)
[2016-10-10] VITALS: BP 138/62; PULSE 61; RESP 18; TEMP 97.9; O2SAT 95
[2016-10-10 04:00] VITALS: BP 143/72; PULSE 59; RESP 22; TEMP 98; O2SAT 96
[2016-10-10 04:41] LABS: HEMATOCRIT 38.5 % (35.0-46.0); MEAN CELL VOLUME 93.9 FL (80.0-100.0); MEAN CORPUSCULAR HEMOGLOBIN 32.1 PG (27.0-34.0); MEAN CORPUSCULAR HGB CONC 34.2 % (32.0-36.0); PLATELET COUNT 219 TH/MM3 (150-450); RED CELL DISTRIBUTION WIDTH 13.6 % (11.6-17.2); REVIEW FLAG FINAL; WHITE BLOOD COUNT 10.4 TH/MM3 (4.0-11.0)
[2016-10-10 05:09] LABS: BICARBONATE 29.3 MEQ/L (21.0-32.0)
[2016-10-10] MEDS: LEVOTHYROXINE SODIUM 75 MCG TAB PO SCH (06:30)
[2016-10-10] MEDS: ACETAMINOPHEN 325 MG TAB PO PRN (06:31)
[2016-10-10 07:00] VITALS: PULSE 62
[2016-10-10 07:15] VITALS: PULSE 62
[2016-10-10 08:00] VITALS: BP 140/73; PULSE 65; RESP 16; TEMP 98; O2SAT 90
[2016-10-10] MEDS ORDERED: ASPI-99 PO (08:35)
[2016-10-10] MEDS ORDERED: OXYC-392 PO (08:35)
[2016-10-10 08:40] VITALS: O2SAT 95
--- NOTE | 2016-10-10 08:44 | PD.VS.DC ---
Discharge Summary Admission Date: Oct 09, 2016 at 06:03 Discharge Date: Oct 10, 2016 Admission Diagnosis: (1) Carotid artery disease Discharge Diagnosis: (1) Carotid artery disease Status: Acute Brief History from admission 71 yo [facility] female with asymptomatic R carotid stenosis; no history of stroke, TIA, or amaurosis. Has been feeling well since seen in clinic - no change in health Procedure(s): R CEA Significant Findings GENERAL: A&OX3, NAD, GCS15 SKIN: Warm and dry/ Right neck incision intact with surgical glue no s/d present HEAD: Normocephalic/ Pt denies h/a NECK: Supple CARDIOVASCULAR: +S1, S2 RESPIRATORY: No accessory muscle use. CN2-12 intact Pt w/o headache/sob/cp/fever Pt w/o motor deficits Laboratory Tests Test 10/10/16 03:30 Estimat Glomerular Filtration 76 ML/MIN (>89) Rate Random Glucose 132 MG/DL (74-106) Hospital Course: 71 yo [facility] female with asymptomatic R carotid stenosis R CEA done on 10/09/16 w/o complications Pt doing well post op ambulating hallways this am No neurological deficits present Allergies Coded Allergies Type Severity Reaction Last Updated Verified Dilaudid Adverse Reaction Mild Nausea/Vomiting 10/09/16 Yes 10/08////// 06:00 18:00 06:00 18:00 06:00 18:00 Intake Total 1300 ml 260 ml Output Total 545 ml Balance 755 ml 260 ml Intake Oral 400 ml 240 ml IV Total 900 ml 20 ml Output Urine Total 545 ml # Voids 1 3 # Bowel Movements 0 0 Laboratory Tests Test 10/10/16 03:30 White Blood Count 10.4 TH/MM3 Red Blood Count 4.10 MIL/MM3 Hemoglobin 13.2 GM/DL Hematocrit 38.5 % Mean Corpuscular Volume 93.9 FL Mean Corpuscular Hemoglobin 32.1 PG Mean Corpuscular Hemoglobin 34.2 % Concent Red Cell Distribution Width 13.6 % Platelet Count 219 TH/MM3 Mean Platelet Volume 8.2 FL Sodium Level 142 MEQ/L Potassium Level 4.0 MEQ/L Chloride Level 106 MEQ/L Carbon Dioxide Level 29.3 MEQ/L Anion Gap 7 MEQ/L Blood Urea Nitrogen 11 MG/DL Creatinine 0.75 MG/DL Estimat Glomerular Filtration 76 ML/MIN Rate Random Glucose 132 MG/DL Calcium Level 8.9 MG/DL Procedure Category Date Status Time Lactated Ringer's MED 10/09/16 Complete 1000 Ml Inj (Lr 1000 M 06:30 Sodium Chlorid 0.9% MED 10/09/16 Complete 500 Ml Inj (Ns 500 M 06:30 Metoprolol Tartrate MED 10/09/16 Complete (Lopressor) 06:30 Povidone Iod 5% MED 10/09/16 Complete Antisepsis Kit 06:30 Chlorhexidine 2% MED 10/09/16 Complete Cloth (Chlorhexidine 06:30 Insulin Human Regular MED 10/09/16 Complete Inj (Novolin R Inj 06:30 Heparin Inj (Heparin MED 10/09/16 Complete Inj) 07:18 Thrombin Top Guymon MED 10/09/16 Complete (Thrombin Top Guymon) 07:18 Protamine Sulfate Inj MED 10/09/16 Complete (Protamine Sulfate 07:18 Admit To Inpatient ADMITTING 10/09/16 Transmitted Code Status CODE 10/09/16 Transmitted 07:25 Vital Signs (Adult) EVARISTO 10/09/16 Complete 07:25 Outsewer / EVARISTO 10/09/16 Complete Telemetry 07:25 Activity Oob Ad Ann EVARISTO 10/09/16 In Process 07:[address] Mortensen EVARISTO 10/09/16 In Process 07:25 Diet Heart Healthy DIET 10/09/16 Transmitted Breakfast Lactated Ringer's MED 10/09/16 Complete 1000 Ml Inj (Lr 1000 M 07:25 Pantoprazole MED 10/09/16 In Process (Protonix) 09:00 Oxycodone (Roxicodone) MED 10/09/16 In Process 07:30 Morphine Inj MED 10/09/16 In Process (Morphine Inj) 07:30 Inpatient ADMITTING 10/09/16 Transmitted Certification Levothyroxine MED 10/09/16 In Process (Synthroid) 08:30 Losartan (Cozaar) MED 10/09/16 In Process 09:00 Patient Own Medication MED 10/09/16 In Process 13:00 Remove Urinary EVARISTO 10/09/16 In Process Catheter 15:00 Aspirin Ec (Ecotrin MED 10/09/16 In Process Ec) 09:00 Consult Ceramics Machine Operator CONS 10/09/16 Transmitted (Hub Use Only)Inp Phy CONS 10/09/16 Transmitted Cons/Ref Famotidine Inj MED 10/09/16 Complete (Pepcid Inj) 07:41 Midazolam Inj (Versed MED 10/09/16 Complete Inj) 07:42 Metoclopramide Inj MED 10/09/16 Complete (Reglan Inj) 07:42 Ondansetron Inj MED 10/09/16 Complete (Zofran Inj) 07:42 Promethazine Inj MED 10/09/16 Complete (Phenergan Inj) 07:45 Cefazolin 2 Gm Premix MED 10/09/16 Complete (Ancef 2 Gm Premix 08:09 Urinary Catheter EVARISTO 10/09/16 Complete Management 08:39 Fentanyl Inj MED 10/09/16 Complete (Fentanyl Inj) 10:19 Sugammadex Inj MED 10/09/16 Complete (Bridion Inj) 10:19 Misc Nursing MED 10/09/16 In Process Information 10:00 Enoxaparin Inj MED 10/10/16 In Process (Lovenox Inj) 09:00 Am Admit Pre Op Care [facility] 10/09/16 Complete Anticoagulant Alert EVARISTO 10/09/16 In Process ^ Sling EVARISTO 10/09/16 In Process Resp Oxygen Antione C RSP 10/09/16 Logged Titrat 1-4 L ^ IV EVARISTO 10/09/16 In Process ^ Straight Catheter EVARISTO 10/09/16 In Process ^ Draw Lab Specimen EVARISTO 10/09/16 In Process Bedside Glucose EVARISTO 10/09/16 Complete 11:[address]: Other EVARISTO 10/09/16 In Process Outsewer / EVARISTO 10/09/16 In Process Telemetry 11:19 Acetaminophen MED 10/09/16 Complete (Tylenol) 16:04 Acetaminophen MED 10/09/16 In Process (Tylenol) 21:00 Basic Metabolic Panel LAB 10/10/16 Complete (Bmp) 04:00 Cbc No Diff, Includes LAB 10/10/16 Complete Plts 04:00 Attending Discharge DISCHARGE 10/10/16 Transmitted Order Vital Signs Date Time Temp Pulse Resp B/P Pulse Ox O2 Delivery O2 Flow Rate FiO2 10/10/16 07:00 62 10/10/16 04:00 96 Nasal Cannula 2.00 10/10/16 04:00 98.0 59 22 143/72 96 10/10/16 04:00 59 10/10/16 02:00 89 Nasal Cannula 2.00 10/10/16 01:15 96 Room Air 10/10/16 00:00 97.9 61 18 138/62 95 10/10/16 00:00 61 10/10/16 00:00 95 Nasal Cannula 2.00 10/09/16 23:22 16 10/09/16 21:44 95 Nasal Cannula 2.00 10/09/16 21:00 95 Nasal Cannula 2.00 10/09/16 20:00 96 Nasal Cannula 3.00 10/09/16 20:00 97.9 64 17 120/65 96 10/09/16 20:00 64 10/09/16 19:15 64 10/09/16 19:00 93 Nasal Cannula 4.00 10/09/16 16:58 19 10/09/16 16:21 95 Nasal Cannula 2.00 10/09/16 16:20 71 10/09/16 15:05 97.8 72 19 123/60 96 10/09/16 12:05 65 10/09/16 12:05 95 Nasal Cannula 4.00 10/09/16 11:11 97.5 57 17 143/59 98 10/09/16 06:54 98.0 78 16 172/71 98 Discharge Condition: Good Discharge Disposition: Discharge Home Discharge Instructions: F/U w/ PCP this week F/U in our out patient clinic on 10/31/16 at 11:30 with a surveillance duplex Leave incision open to air No driving for 2 weeks Call with any new questions or concerns Aura CHEW [facility] [phone] Any questions or concerns: Call [facility] Heart [facility] V[facility] Surgery at [facility] [phone] Aura Payne Oct 10, 2016 08:44
--- NOTE | 2016-10-10 08:54 | PD.VS.PN ---
Subjective POD #: 1 Procedure(s): R CEA Subjective/Hospital Course Pt ambulating the hallway Pt reported pain is controlled w/ "Tylenol" Pt w/o complaints this am Pt w/o pain, sob, fever CN 2-12 intact Pt denies Headache Objective Vitals/I&O Date Time Temp Pulse Resp B/P Pulse Ox O2 Delivery O2 Flow Rate FiO2 10/10/16 07:00 62 10/10/16 04:00 96 Nasal Cannula 2.00 10/10/16 04:00 98.0 59 22 143/72 96 10/10/16 04:00 59 10/10/16 02:00 89 Nasal Cannula 2.00 10/10/16 01:15 96 Room Air 10/10/16 00:00 97.9 61 18 138/62 95 10/10/16 00:00 61 10/10/16 00:00 95 Nasal Cannula 2.00 10/09/16 23:22 16 10/09/16 21:44 95 Nasal Cannula 2.00 10/09/16 21:00 95 Nasal Cannula 2.00 10/09/16 20:00 96 Nasal Cannula 3.00 10/09/16 20:00 97.9 64 17 120/65 96 10/09/16 20:00 64 10/09/16 19:15 64 10/09/16 19:00 93 Nasal Cannula 4.00 10/09/16 16:58 19 10/09/16 16:21 95 Nasal Cannula 2.00 10/09/16 16:20 71 10/09/16 15:05 97.8 72 19 123/60 96 10/09/16 12:05 65 10/09/16 12:05 95 Nasal Cannula 4.00 10/09/16 11:11 97.5 57 17 143/59 98 10/10/16 10/10/16 10/10/16 07:00 15:00 23:00 Intake Total 260 ml Balance 260 ml Exam: CN 2-12 intact Incision to R side of neck intact with surgical glue, No S/D present Laboratory Laboratory Tests Test 10/10/16 03:30 White Blood Count 10.4 Red Blood Count 4.10 Hemoglobin 13.2 Hematocrit 38.5 Mean Corpuscular Volume 93.9 Mean Corpuscular Hemoglobin 32.1 Mean Corpuscular Hemoglobin 34.2 Concent Red Cell Distribution Width 13.6 Platelet Count 219 Mean Platelet Volume 8.2 Sodium Level 142 Potassium Level 4.0 Chloride Level 106 Carbon Dioxide Level 29.3 Anion Gap 7 Blood Urea Nitrogen 11 Creatinine 0.75 Estimat Glomerular Filtration 76 Rate Random Glucose 132 Calcium Level 8.9 Assessment and Plan Assessment: (1) Carotid artery disease Status: Acute Plan Plan Pt w/o complaints this am Pt to be d/c'd today Arranged for f/u in 1M in our OPC Pt to f/u w/ PCP this week Aura CHEW [facility] [phone] Discharge Planning D/C today Problem Qualifiers (1) Carotid artery disease: Qualified Code: I77.9 - Right-sided carotid artery disease Aura Payne Oct 10, 2016 08:54
[2016-10-10] MEDS ORDERED: ENOXAPARIN SODIUM 30 MG/0.3 ML SYRINGE SQ SCH (09:00)
[2016-10-10] MEDS: PANTOPRAZOLE SOD 40 MG DELAYED RELEASE TAB PO SCH (09:12)
[2016-10-10] MEDS: LOSARTAN 50 MG TAB PO SCH (09:12)
[2016-10-10] MEDS: ASPIRIN EC 81 MG TABEC PO SCH (09:12)
--- NOTE | 2016-10-10 09:36 | HHI.CCPN ---
Subjective Remarks/Hospital Course 71-year-old female. Date of admission . Date of consultation 10/09/2016. 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 She is status post right nephrectomy in 1965. She is also had a cholecystectomy, hysterectomy and bunionectomy. Today, she had an elective right CVA with patch secondary to proximal ZABRINA stenosis by Dr. Quezada. 1000 crystalloid. 75 cc EBL. 100 urine output. Received 40 mg labetalol and esmolol postoperative to maintain systolic blood pressure less than 140. SUBJECTIVE: 10/10: Resting comfortably in bed. Plan to go home today. Pain control. Tolerating diet. Objective Vital Signs Date Time Temp Pulse Resp B/P Pulse Ox O2 Delivery O2 Flow Rate FiO2 10/10/16 08:40 95 21 10/10/16 08:00 Nasal Cannula 10/10/16 08:00 98.0 65 16 140/73 10/10/16 04:00 2.00 Intake and Output 10/09/16 10/09/16 10/10/16 08:00 16:00 00:00 Intake Total 1300 ml Output Total 545 ml Balance 755 ml Result Diagram: 10/10/16 0330 10/10/16 0330 Objective Remarks GENERAL: 72 -year-old female, early resting in bed in no acute distress SKIN: Warm and dry. No rash. Some ecchymosis right clavicle regions HEAD: Atraumatic. Normocephalic. EYES: Pupils equal and round about 2 mm bilaterally reactive 3 mm. No scleral icterus. No injection or drainage. ENT: No nasal bleeding or discharge. Mucous membranes pink and moist. NECK: Trachea midline. No JVD. Right ICA scar is clean dry and intact without erythema CARDIOVASCULAR: Tachycardic, RR. S1, S2. No S4. Without murmur RESPIRATORY: No accessory muscle use. Clear to auscultation. Breath sounds equal bilaterally. GASTROINTESTINAL: Abdomen soft, non-tender, nondistended. Hepatic and splenic margins not palpable. MUSCULOSKELETAL: Extremities without significant peripheral edema. No obvious deformities. NEUROLOGICAL: Awake and alert. No obvious cranial nerve deficits. Motor grossly within normal limits. Five out of 5 muscle strength in the arms and legs. Normal speech. PSYCHIATRIC: Appropriate mood and affect; insight and judgment normal. A/P Assessment and Plan Neuro/Psych: History of migraine headache Anxiety Acetaminophen for fever Oxycodone 5 mill grams every 4 hours when necessary pain/morphine 2 mg every hour when necessary breakthrough CV: Postop day #1 right CVA with patch secondary to significant proximal right ICA stenosis History of hypertension Dyslipidemia History of atrial fibrillation status post ablation 02/01 Currently on Cozaar 100 mg by mouth daily for hypertension. Resume Cleviprex drip goal keep systolic blood pressure less than 140 Diltiazem 240 mg by mouth daily at home for hypertension on hold On LR at 42 cc an hour Continue aspirin 81 mg by mouth daily per vascular surgery Resp: Nasal cannula to maintain saturations greater than or equal to 92% Incentive spirometry while awake GI: Gastroesophageal reflux disease History of gastroparesis Advance diet per vascular surgery Protonix for GI prophylaxis On erythromycin 125 mg 4 times a day for chronic gastroparesis at home : Paul catheter to be removed Endo: Hypothyroidism Continue Levoxyl 75 mics grams by mouth daily Sliding-scale insulin per vascular surgery. Goal to maintain euglycemia Renal: History of right nephrectomy Monitor urine output Accurate I's and O's Heme: Chronic Eliquis use Monitor CBC daily. Follow trends. EBL 75 cc an hour On Eliquis at 5 mg twice a day at home ID: Monitor for infection FEN: Replace electrolytes as clinically indicated MSK: PT evaluate and treat Access - 1 left peripheral IV in left hand. - Left radial arterial line placed in OR 10/09 Prophylaxis - GI - Protonix - DVT - Lovenox subcutaneous Level I Todd Shetty MD Oct 10, 2016 09:36
--- NOTE | 2016-10-10 16:14 | MP ---
cc: NED BREWSTER MD DATE OF SURGERY: 10/09/2016 PREOPERATIVE DIAGNOSIS: Asymptomatic high-grade right carotid stenosis. POSTOPERATIVE DIAGNOSIS Asymptomatic high-grade right carotid stenosis. PROCEDURE Right carotid endarterectomy MEDICATIONS Ned BREWSTER MD ANESTHESIA General INDICATION Ms. Webster is a 71 year-old female who is remarkably healthy, who has a high-grade (90%) right carotid stenosis. After thorough discussion was had with the patient about the risks and benefits she was offered a right carotid endarterectomy. PROCEDURE Informed consent and the patient is taken to the operating room and placed supine on the operating room table and appropriate time out was taken and it showed options and planned procedure. The administration of 2 grams of Ancef was initiated prior to skin incision will be discontinued after single preoperative dose everyone in the room agreed with time out and proceeded. Her right neck was prepped and draped. An incision was made along the anterior aspect sternocleidomastoid carried out to the subcutaneous tissue with electrocautery, the facial vein was identified and transected between 3-0 silk ties. The common carotid artery was identified and dissected free circumferentially and circled with vessel loop. The external carotid artery and superior thyroid artery similarly dissected free and the distal ICA was similarly dissected free the bulb was not dissected free. At this point the patient systemically heparinized with 8000 units intravenous heparin. ACTs is confirmed to be greater than 215, throughout the remainder of the case the ACT is kept greater than this with additional heparin boluses, distal and then proximal control of the internal and common carotid arteries respectively were obtained profunda clamps and a longitudinal arteriotomy was made with an 11 blade and extended with Vicco scissors. Throughout the entire period of carotid occlusion. The neuro monitoring showed no ischemic changes and so no shunt was used. The common carotid artery, internal carotid artery was endarterectomized without difficulty. A nice endpoint was obtained. Bovine pericardial patch was brought up on the field and sewn to the patch using running 5-0 Prolene suture. At the completion it was flushed and noted to be hemostatic. The clamps released and a nice Doppler signal in the ICA and ECA. The wound was made hemostatic, the heparin was reversed with protamine and the wound was then closed with 2-0 Polysorb. 3-0 Polysorb and 4-0 Monocryl. The sponge, needle counts were correct at the end of the case. I was present and scrubbed throughout the entire procedure. At the conclusion of the case, the patient is awoken from anesthesia, neurologically intact. MD RIGO Villagomez/he /5:00 PM /3:59 PM BRIANNE
== END 2016-10-10 09:45 | disposition home or self-care (01) | DRG 39 ==
LOC: HSDI 10-09 06:03 → HCVR 10-09 09:51
PROVIDERS: ADMIT Surgery; ATTEND Surgery
PROC: 03CK0ZZ Extirpation of Matter from Right Internal Carotid Artery, Open Approach (ICD-10-PCS; 2016-10-09)
PROC: 03UH0KZ Supplement Right Common Carotid Artery with Nonautologous Tissue Substitute, Open Approach (ICD-10-PCS; 2016-10-09)
PROC: 03UK0KZ Supplement Right Internal Carotid Artery with Nonautologous Tissue Substitute, Open Approach (ICD-10-PCS; 2016-10-09)
PROC: 03CH0ZZ Extirpation of Matter from Right Common Carotid Artery, Open Approach (ICD-10-PCS; principal; 2016-10-09 07:51)
DX: I65.21 Occlusion and stenosis of right carotid artery (principal); K31.84 Gastroparesis; I48.91 Unspecified atrial fibrillation; I10 Essential (primary) hypertension; E03.9 Hypothyroidism, unspecified; G43.909 Migraine, unspecified, not intractable, without status migrainosus; K21.9 Gastro-esophageal reflux disease without esophagitis; F41.9 Anxiety disorder, unspecified; Z90.5 Acquired absence of kidney; M16.12 Unilateral primary osteoarthritis, left hip; Z87.891 Personal history of nicotine dependence; Z80.42 Family history of malignant neoplasm of prostate; Z82.49 Family history of ischemic heart disease and other diseases of the circulatory system; E78.5 Hyperlipidemia, unspecified; Z79.899 Other long term (current) drug therapy; M19.071 Primary osteoarthritis, right ankle and foot; R11.2 Nausea with vomiting, unspecified; T40.2X5A Adverse effect of other opioids, initial encounter; Y92.239 Unspecified place in hospital as the place of occurrence of the external cause
CPT/HCPCS: 80048; 85027; C1768; J0690; J1644; J2250; J2370; J2405; J2550; J2720; J2765; J3010; J7120

== ENCOUNTER → 2016-10-07 | Outpatient (CLI) | payer MEDICARE, OTHER ==
[~2016-10-07] MED LIST changes: +APIX5TAB PO; +ASPI-99 PO; +COZA100T PO; +ERYT250C PO; +LEVO75TA3 PO; +OXYC-392 PO
[2016-10-07 12:37] LABS: HEMATOCRIT 41.1 % (35.0-46.0); MEAN CELL VOLUME 93.8 FL (80.0-100.0); MEAN CORPUSCULAR HEMOGLOBIN 31.7 PG (27.0-34.0); MEAN CORPUSCULAR HGB CONC 33.8 % (32.0-36.0); PLATELET COUNT 249 TH/MM3 (150-450); RED BLOOD COUNT 4.38 MIL/MM3 (4.00-5.30); RED CELL DISTRIBUTION WIDTH 13.7 % (11.6-17.2); REVIEW FLAG FINAL; WHITE BLOOD COUNT 5.9 TH/MM3 (4.0-11.0)
[2016-10-07 12:45] LABS: BLOOD, URINE NEG (NEG); COMMENT (UR) CULT NOT INDICATED; CULTURE IF INDICATED CULT NOT INDICATED; GLUCOSE,URINE NEG (NEG); KETONE, URINE NEG (NEG); MUCUS URINE FEW /lpf (OCC); NITRITE,URINE NEG (NEG); PH, URINE 5.5 (5.0-8.5); URINE COLOR YELLOW (YELLW/STRAW)
[2016-10-07 12:47] LABS: APTT (PATIENT) 28.2 SEC (24.3-30.1); INTERNATIONAL NORMALIZED RATIO 0.9 RATIO; PROTHROMBIN TIME - PATIENT 10.4 SEC (9.8-11.6)
--- NOTE | 2016-10-07 12:49 | RADRPT ---
EXAM DATE/TIME: 10/07/2016 12:28 [facility] COMPARISON: CHEST SINGLE AP, March 21, 2015, 1:51. INDICATIONS : Evaluate for pneumonia, pneumothorax or communicable disease. Pre op carotid artery surgery. MEDICAL HISTORY : ablation 2014 SURGICAL HISTORY : loop recorder ENCOUNTER: Initial ACUITY: 1 day PAIN SCORE: 0/10 LOCATION: Bilateral chest FINDINGS: Note is made of a loop recorder. The heart is normal in size. The lungs are clear. The bony structure s demonstrate degenerative changes but are otherwise intact CONCLUSION: 1. Loop recorder. 2. The lungs are clear. David Gomez MD on October 07, 2016 at 12:46 Board Certified Radiologist. This report was verified electronically.
[2016-10-07 13:07] LABS: BICARBONATE 28.1 MEQ/L (21.0-32.0); POTASSIUM 4.2 MEQ/L (3.5-5.1)
== END ==
LOC: CPRE 11:14
PROVIDERS: ATTEND Surgery
DX: Z01.812 Encounter for preprocedural laboratory examination (principal); Z01.811 Encounter for preprocedural respiratory examination; I65.23 Occlusion and stenosis of bilateral carotid arteries
CPT/HCPCS: 36415; 71020; 80048; 81001; 85027; 85610; 85730; 86850; 86900; 86901

== ENCOUNTER → 2016-10-07 | Outpatient (CLI) | payer MEDICARE, OTHER ==
[2016-10-07 16:46] LABS: ANION GAP 9 MEQ/L (5-15); AST (GOT) 25 U/L (15-37); BICARBONATE 25.7 MEQ/L (21.0-32.0); BLOOD UREA NITROGEN 17 MG/DL (7-18); CHLORIDE 106 MEQ/L (98-107); GLOMERULAR FILTRATION RATE 59 ML/MIN (>89); GLUCOSE,FASTING 88 MG/DL (74-99); SODIUM (NA) 141 MEQ/L (136-145)
[2016-10-07 16:47] LABS: ALT (GPT) 31 U/L (10-53)
[2016-10-07 16:49] LABS: ALKALINE PHOSPHATASE 61 U/L (45-117); HDL CHOLESTEROL 75.9 MG/DL (40.0-60.0); LDL CHOLESTEROL 136 MG/DL (0-99); TOTAL BILIRUBIN ADULT 0.6 MG/DL (0.2-1.0)
== END ==
LOC: PLAB 13:07
PROVIDERS: ATTEND Family Medicine
DX: I10 Essential (primary) hypertension (principal); I65.23 Occlusion and stenosis of bilateral carotid arteries
CPT/HCPCS: 36415; 80053; 80061

== ENCOUNTER → 2017-02-04 | Outpatient (CLI) | payer MEDICARE, OTHER ==
[~2017-02-04] MED LIST changes: -CARA1TAB6 PO; -CYCL1TAB29 PO; -DILT60TA PO; -ERYT250C12 PO; -HYDR25TA5 PO; -LEVO75TA43 PO; -LOSA100T PO; -PANT40TA3 PO; -ULTR50TA5 PO
[2017-02-04 13:34] LABS: AUTOMATED NEUTROPHIL # 7.4 TH/MM3 (1.8-7.7); BASOPHIL % 0.4 % (0.0-2.0); EOSINOPHIL # 0.1 TH/MM3 (0-0.4); EOSINOPHIL % 0.9 % (0.0-4.0); HEMATOCRIT 42.2 % (35.0-46.0); HEMO FLAGS DIFF FINAL; LYMPH % 25.3 % (9.0-44.0); LYMPHOCYTE # 2.8 TH/MM3 (1.0-4.8); MEAN CELL VOLUME 95.7 FL (80.0-100.0); MEAN CORPUSCULAR HEMOGLOBIN 32.1 PG (27.0-34.0); MEAN CORPUSCULAR HGB CONC 33.5 % (32.0-36.0); MONO % 6.8 % (0.0-8.0); NEUT % 66.6 % (16.0-70.0); PLATELET COUNT 261 TH/MM3 (150-450); RED BLOOD COUNT 4.41 MIL/MM3 (4.00-5.30); RED CELL DISTRIBUTION WIDTH 13.2 % (11.6-17.2); WHITE BLOOD COUNT 11.1 TH/MM3 (4.0-11.0)
[2017-02-04 13:47] LABS: ALT (GPT) 35 U/L (10-53); ANION GAP 5 MEQ/L (5-15); AST (GOT) 19 U/L (15-37); BICARBONATE 28.2 MEQ/L (21.0-32.0); BLOOD UREA NITROGEN 20 MG/DL (7-18); CHLORIDE 107 MEQ/L (98-107); GLOMERULAR FILTRATION RATE 53 ML/MIN (>89); GLUCOSE,FASTING 80 MG/DL (74-99); POTASSIUM 4.3 MEQ/L (3.5-5.1); SODIUM (NA) 140 MEQ/L (136-145)
[2017-02-04 13:57] LABS: ALKALINE PHOSPHATASE 79 U/L (45-117); HDL CHOLESTEROL 88.3 MG/DL (40.0-60.0); LDL CHOLESTEROL 146 MG/DL (0-99); TOTAL BILIRUBIN ADULT 0.5 MG/DL (0.2-1.0)
== END ==
LOC: PLAB 11:35
PROVIDERS: ATTEND Family Medicine
DX: I10 Essential (primary) hypertension (principal); K21.9 Gastro-esophageal reflux disease without esophagitis; E78.5 Hyperlipidemia, unspecified; R09.89 Other specified symptoms and signs involving the circulatory and respiratory systems; K31.84 Gastroparesis; E03.8 Other specified hypothyroidism
CPT/HCPCS: 36415; 80053; 80061; 84443; 85025

== ENCOUNTER → 2017-05-08 | Outpatient (CLI) | payer MEDICARE, OTHER ==
[2017-05-08 13:45] LABS: ALBUMIN 3.7 GM/DL (3.4-5.0); BLOOD UREA NITROGEN 14 MG/DL (7-18); CALCIUM 9.4 MG/DL (8.5-10.1); CHLORIDE 105 MEQ/L (98-107); CREATININE 0.97 MG/DL (0.50-1.00); GLOMERULAR FILTRATION RATE 56 ML/MIN (>89); GLUCOSE,FASTING 105 MG/DL (74-99); POTASSIUM 4.1 MEQ/L (3.5-5.1); SODIUM (NA) 141 MEQ/L (136-145)
[2017-05-08 13:47] LABS: AST (GOT) 26 U/L (15-37); CHOLESTEROL 215 MG/DL (120-200)
[2017-05-08 13:51] LABS: ALKALINE PHOSPHATASE 66 U/L (45-117); ALT (GPT) 33 U/L (10-53); ANION GAP 8 MEQ/L (5-15); BICARBONATE 28.2 MEQ/L (21.0-32.0); CHOLESTEROL/ HDL RATIO 2.66 RATIO; HDL CHOLESTEROL 80.8 MG/DL (40.0-60.0); LDL CHOLESTEROL 111 MG/DL (0-99); TOTAL BILIRUBIN ADULT 0.6 MG/DL (0.2-1.0); TOTAL PROTEIN 7.8 GM/DL (6.4-8.2); TRIGLYCERIDES 118 MG/DL (42-150)
== END ==
LOC: PLAB 10:39
DX: E78.5 Hyperlipidemia, unspecified (principal); I65.21 Occlusion and stenosis of right carotid artery; K21.9 Gastro-esophageal reflux disease without esophagitis
CPT/HCPCS: 36415; 80053; 80061

== ENCOUNTER → 2017-05-15 | Outpatient (CLI) | payer MEDICARE, OTHER ==
[~2017-05-15] MED LIST changes: -ASPI-99 PO; +ASPI1TAB56 PO
== END ==
LOC: PLAB 11:27
PROVIDERS: ATTEND Family Medicine
DX: M79.1 Myalgia (principal)
CPT/HCPCS: 36415; 85652; 86141

== ENCOUNTER → 2017-07-24 | Outpatient (CLI) | payer MEDICARE, OTHER ==
[2017-07-24 14:20] LABS: AUTOMATED NEUTROPHIL # 2.2 TH/MM3 (1.8-7.7); BASOPHIL % 0.8 % (0.0-2.0); EOSINOPHIL # 0.1 TH/MM3 (0-0.4); EOSINOPHIL % 2.5 % (0.0-4.0); HEMATOCRIT 41.3 % (35.0-46.0); HEMOGLOBIN 13.8 GM/DL (11.6-15.3); LYMPH % 44.9 % (9.0-44.0); LYMPHOCYTE # 2.3 TH/MM3 (1.0-4.8); MEAN CORPUSCULAR HEMOGLOBIN 31.9 PG (27.0-34.0); MEAN CORPUSCULAR HGB CONC 33.5 % (32.0-36.0); MONO % 7.9 % (0.0-8.0); MONOCYTE # 0.4 TH/MM3 (0-0.9); NEUT % 43.9 % (16.0-70.0); PLATELET COUNT 232 TH/MM3 (150-450); RED BLOOD COUNT 4.35 MIL/MM3 (4.00-5.30); RED CELL DISTRIBUTION WIDTH 13.4 % (11.6-17.2); WHITE BLOOD COUNT 5.1 TH/MM3 (4.0-11.0)
[2017-07-24 14:38] LABS: RHEUMATOID FACTOR SCREEN NEGATIVE (NEGATIVE)
[2017-07-24 14:41] LABS: WESTERGREN SEDIMENTATION RATE 46 mm/hr (0-30)
[2017-07-24 14:56] LABS: ALBUMIN 3.6 GM/DL (3.4-5.0); AST (GOT) 31 U/L (15-37); BICARBONATE 28.1 MEQ/L (21.0-32.0); BLOOD UREA NITROGEN 13 MG/DL (7-18); CALCIUM 9.2 MG/DL (8.5-10.1); CHLORIDE 105 MEQ/L (98-107); CREATININE 0.89 MG/DL (0.50-1.00); GLOMERULAR FILTRATION RATE 62 ML/MIN (>89); GLUCOSE,RANDOM 87 MG/DL (74-106); SODIUM (NA) 141 MEQ/L (136-145)
[2017-07-24 15:23] LABS: ALKALINE PHOSPHATASE 61 U/L (45-117); ALT (GPT) 34 U/L (10-53); C-REACTIVE PROTEIN 0.89 MG/DL (0.00-0.30); FREE T4 1.18 NG/DL (0.76-1.46); TOTAL BILIRUBIN ADULT 0.4 MG/DL (0.2-1.0)
== END ==
LOC: PLAB 10:15
PROVIDERS: ATTEND Specialist
DX: M47.23 Other spondylosis with radiculopathy, cervicothoracic region (principal); M31.6 Other giant cell arteritis; R79.82 Elevated C-reactive protein (CRP); D51.9 Vitamin B12 deficiency anemia, unspecified; R94.6 Abnormal results of thyroid function studies; M05.9 Rheumatoid arthritis with rheumatoid factor, unspecified; G93.3 Postviral and related fatigue syndromes
CPT/HCPCS: 36415; 80053; 82607; 84439; 84443; 85025; 85652; 86038; 86140; 86430